=== PATIENT | female | born 1995 ===

== ENCOUNTER 2021-10-06 09:19 | Inpatient (IN) | payer BC ==
[2021-10-06] MEDS ORDERED: Sodium Chloride 0.9% 2.5 ML Syringe FLUSH PRN (20:19)
[2021-10-06] MEDS ORDERED: Methylergonovine 0.2 MG/1 ML Amp IM PRN (20:19)
[2021-10-06] MEDS ORDERED: Terbutaline 1 MG/ML SDV SUBCUT PRN (20:19)
[2021-10-06] MEDS ORDERED: Sodium Chloride 0.9% 20 ML SDV IV PRN (20:19)
[2021-10-06] MEDS ORDERED: Water For Irrigation,Sterile 1,000 ML Container IRR PRN (20:19)
[2021-10-06] MEDS ORDERED: Misoprostol 200 MCG Tab PO PRN (20:19)
[2021-10-06] MEDS ORDERED: Carboprost Tromethamine 250 MCG/1 ML Amp IM PRN (20:19)
[2021-10-06] MEDS ORDERED: Sodium Chloride 0.9% 10 ML Syringe FLUSH PRN (20:19)
[2021-10-06] MEDS ORDERED: Lidocaine 1% 50 ML MDV INJECT PRN (20:19)
[2021-10-06] MEDS ORDERED: Tranexamic Acid 1,000 MG in Sodium Chloride 0.9% 100 ML IV PRN (20:19)
[2021-10-06] MEDS ORDERED: Ondansetron 4 MG/2 ML SDV IVPUSH PRN (20:19)
[2021-10-06] MEDS ORDERED: Oxytocin/0.9 % Sodium Chloride 30 UNIT/500 ML BAG IV SCH ×2 (20:30)
[2021-10-06] MEDS ORDERED: Lactated Ringers 1,000 ML IV SCH (20:30)
[2021-10-07] MEDS: Butorphanol 1 MG/ML SDV IVPUSH PRN ×2 (04:07→05:10)
[2021-10-07] MEDS ORDERED: ePHEDrine 50 MG/ML SDV IVPUSH PRN (06:01)
[2021-10-07] MEDS ORDERED: Ropivacaine HCl/PF 400 MG in Premix Bag 1 BAG EPIDUR SCH (06:15)
[2021-10-07] MEDS ORDERED: Acetaminophen 500 MG Tab PO PRN ×2 (12:21)
[2021-10-07] MEDS ORDERED: Bisacodyl 10 MG Supp RECTAL PRN (12:21)
[2021-10-07] MEDS ORDERED: Docusate Sodium 100 MG Cap PO PRN (12:21)
[2021-10-07] MEDS ORDERED: Benzocaine/Menthol 20%-0.5% Spray 78 GM Cannister TOP PRN (12:21)
[2021-10-07] MEDS ORDERED: Ibuprofen 400 MG Tab PO PRN (12:21)
[2021-10-07] MEDS ORDERED: Witch Hazel Medicated Pads 40/Jar TOP PRN (12:21)
[2021-10-07] MEDS ORDERED: Lanolin 100% Cream 7 GM Tube TOP PRN (12:21)
[2021-10-07] MEDS: Ibuprofen 800 MG Tab PO PRN ×2 (13:23→22:19)
== END 2021-10-08 12:05 | disposition home or self-care (01) | DRG 560 ==
LOC: MW.OB 09:19 → OBSVTOIN 10-07 09:19 → MW.OB 10-07 15:37
PROVIDERS: ADMIT Obstetrics & Gynecology; ATTEND Obstetrics & Gynecology
PROC: 10E0XZZ Delivery of Products of Conception, External Approach (ICD-10-PCS; principal; 2021-10-07)
PROC: 3E033VJ Introduction of Other Hormone into Peripheral Vein, Percutaneous Approach (ICD-10-PCS; 2021-10-07)
PROC: 10907ZC Drainage of Amniotic Fluid, Therapeutic from Products of Conception, Via Natural or Artificial Opening (ICD-10-PCS; 2021-10-07)
PROC: 3E0R3BZ Introduction of Anesthetic Agent into Spinal Canal, Percutaneous Approach (ICD-10-PCS; 2021-10-07)
PROC: 00HU33Z Insertion of Infusion Device into Spinal Canal, Percutaneous Approach (ICD-10-PCS; 2021-10-07)
PROC: 0HQ9XZZ Repair Perineum Skin, External Approach (ICD-10-PCS; 2021-10-07)
DX: O41.03X0 Oligohydramnios, third trimester, not applicable or unspecified (principal); Z3A.40 40 weeks gestation of pregnancy; Z37.0 Single live birth; O70.0 First degree perineal laceration during delivery; O99.02 Anemia complicating childbirth; D64.9 Anemia, unspecified; Z20.822 Contact with and (suspected) exposure to COVID-19; Z91.030 Bee allergy status; Z88.1 Allergy status to other antibiotic agents; Z91.018 Allergy to other foods
CPT/HCPCS: 36415; 51702; 59025; 59409; 85014; 85018; 85027; 86592; 86850; 86900; 86901; A9270-GY; J0595; J2405; J2590; J2795; J7120; U0002